=== PATIENT | male | born 1945 | race Caucasian/White ===

== ENCOUNTER 2016-08-10 07:32 | Inpatient (IN) | payer OTHER ==
[~2016-08-10] VITALS: Ht 165.1 cm; Wt 90.6 kg
[~2016-08-10 07:32] MED LIST: ACETAMINOPHN-T1 EACH PO; ASPIR-TRIN325 M1 PO; ATORVASTATIN CA40 MG PO; BENADRYL50 MG PO; CALCIUM + D3 E1 EACH PO; CARDIZEM CD120 MG PO; CHILDREN'S ASPI81 M1 PO; CIPRO HC OTIC S10 ML BOTH EARS; COREG12.5 M1 PO; COUMADIN2 MG PO; COUMADIN3 MG PO; CRESTOR20 MG; CRESTOR20 MG PO; CRESTOR40 MG PO; DIGOXIN125 MCG PO; DILTIAZEM CAP 120; DIOVAN160 MG PO; FENOFIBRATE160 M1 PO; FLOMAX0.4 MG PO; KAOPECTATE 88 M88 M1 PO; LEXAPRO10 MG PO; LOMOTIL TABLET1 EACH PO; LOPRESSOR25 MG PO; MEGESTROL ACETA40 MG PO; OMEPRAZOLE40 M1 PO; PREDNISONE10 MG PO; PRILOSEC40 MG PO; PROTONIX40 MG PO; PYRIDIUM100 MG PO; TAMSULOSIN HCL0.4 MG PO; ULTRACET1 TABLET PO; WARFARIN SODIUM2 MG; WARFARIN SODIUM2 MG PO; ZYRTEC10 M2 PO
[2016-08-10 07:59] VITALS: BP 166/82
[2016-08-10 08:15] LABS: HEMATOCRIT 40.7 % (38.0-50.0); MCH 30.4 PG (29.0-34.0); MCHC 33.7 G/DL (30.0-36.0); MCV 90.2 FL (86-99); MEAN PLAT.VOLUME 11.9 uM^3 (9.0-12.4); PLATELET COUNT 171 K/uL (156-360); RBC DIS.WIDTH-CV 14.3 % (11.8-14.6); RBC DIS.WIDTH-SD 47.3 % (39-53); RED BLOOD COUNT 4.51 M/uL (4.00-5.50); WHITE BLOOD COUNT 5.8 K/uL (4.1-10.2)
[2016-08-10 08:24] LABS: PROTHROMBIN TIME 14.5 (9.2-11.2)
[2016-08-10 08:40] LABS: ANION GAP 10 MEQ/L (2-14); CHLORIDE 104 MEQ/L (99-109); INTER. NORMALIZED RATIO 1.4; POTASSIUM 4.5 MEQ/L (3.7-5.4); SAMPLE HEMOLYSIS CHECK 0; SAMPLE ICTERIC CHECK 0; SAMPLE LIPEMIA CHECK 0; SODIUM 138 MEQ/L (136-147)
[2016-08-10 08:45] LABS: GFR ESTIMATE (CALCULATED) > 59 mL/min/; GLUCOSE 173 mg/dL (70-99); UREA NITROGEN (BUN) 19 mg/dL (9-23)
[2016-08-10 08:48] LABS: DIGOXIN 1.3 ng/mL (0.8-2.0)
[2016-08-10 12:33] LABS: HEMATOCRIT 39.9 % (38.0-50.0); MCH 30.8 PG (29.0-34.0); MCHC 34.1 G/DL (30.0-36.0); MCV 90.3 FL (86-99); MEAN PLAT.VOLUME 12.1 uM^3 (9.0-12.4); PLATELET COUNT 125 K/uL (156-360); RBC DIS.WIDTH-CV 14.2 % (11.8-14.6); RED BLOOD COUNT 4.42 M/uL (4.00-5.50); WHITE BLOOD COUNT 9.8 K/uL (4.1-10.2)
[2016-08-10 13:02] LABS: ANION GAP 12 MEQ/L (2-14); CHLORIDE 104 MEQ/L (99-109); CREATINE KINASE 135 IU/L (1-294); GFR ESTIMATE (CALCULATED) > 59 mL/min/; GLUCOSE 169 mg/dL (70-99); POTASSIUM 4.7 MEQ/L (3.7-5.4); SAMPLE HEMOLYSIS CHECK 0; SAMPLE ICTERIC CHECK 0; SAMPLE LIPEMIA CHECK 0; SODIUM 137 MEQ/L (136-147); TOTAL CK 135 IU/L (1-294); UREA NITROGEN (BUN) 19 mg/dL (9-23)
[2016-08-10 13:35] LABS: CK-MB 1.9 ng/mL (0.0-4.9)
[2016-08-10] MEDS ORDERED: HYDROCODON-ACE1 EAC7 PO (14:40)
[2016-08-10 16:35] VITALS: BP 139/90
[2016-08-10 19:20] VITALS: BP 144/73
[2016-08-10 23:20] VITALS: BP 166/86
[2016-08-11 03:20] VITALS: BP 143/85
[2016-08-11 06:41] LABS: HEMATOCRIT 35.5 % (38.0-50.0); MCH 30.7 PG (29.0-34.0); MCHC 34.1 G/DL (30.0-36.0); MCV 90.1 FL (86-99); PLATELET COUNT 135 K/uL (156-360); RBC DIS.WIDTH-CV 14.5 % (11.8-14.6); RBC DIS.WIDTH-SD 47.6 % (39-53); RED BLOOD COUNT 3.94 M/uL (4.00-5.50)
[2016-08-11 06:50] LABS: WHITE BLOOD COUNT 13.6 K/uL (4.1-10.2)
[2016-08-11 07:02] LABS: ANION GAP 11 MEQ/L (2-14); CHLORIDE 104 MEQ/L (99-109); CREATINE KINASE 159 IU/L (1-294); GFR ESTIMATE (CALCULATED) 58 mL/min/; GLUCOSE 210 mg/dL (70-99); POTASSIUM 4.2 MEQ/L (3.7-5.4); SAMPLE HEMOLYSIS CHECK 0; SAMPLE ICTERIC CHECK 0; SAMPLE LIPEMIA CHECK 0; SODIUM 139 MEQ/L (136-147); TOTAL CK 159 IU/L (1-294); UREA NITROGEN (BUN) 20 mg/dL (9-23)
[2016-08-11 07:37] LABS: CK-MB 3.7 ng/mL (0.0-4.9)
[2016-08-11 07:40] VITALS: BP 146/78
[2016-08-11 11:12] VITALS: BP 151/86
[2016-08-11 15:58] VITALS: BP 153/81
== END 2016-08-11 17:10 | disposition home or self-care (01) | DRG 269 ==
LOC: 2SOUTH 07:32 → 4EAST 16:26
PROVIDERS: Surgery
PROC: 04V03D6 (ICD-10-PCS; principal; 2016-08-10)
PROC: 5A09357 Assistance with Respiratory Ventilation, Less than 24 Consecutive Hours, Continuous Positive Airway Pressure (ICD-10-PCS; 2016-08-10)
DX: I71.4 Abdominal aortic aneurysm, without rupture (principal); I25.810 Atherosclerosis of coronary artery bypass graft(s) without angina pectoris; I11.0 Hypertensive heart disease with heart failure; I50.9 Heart failure, unspecified; I48.2 Chronic atrial fibrillation; I25.5 Ischemic cardiomyopathy; G47.33 Obstructive sleep apnea (adult) (pediatric); E78.2 Mixed hyperlipidemia; M19.90 Unspecified osteoarthritis, unspecified site; K21.9 Gastro-esophageal reflux disease without esophagitis; E66.9 Obesity, unspecified; I25.2 Old myocardial infarction; Z86.74 Personal history of sudden cardiac arrest; Z95.1 Presence of aortocoronary bypass graft; Z95.5 Presence of coronary angioplasty implant and graft; Z95.810 Presence of automatic (implantable) cardiac defibrillator; Z79.01 Long term (current) use of anticoagulants; Z85.46 Personal history of malignant neoplasm of prostate; Z88.0 Allergy status to penicillin; Z88.2 Allergy status to sulfonamides; Z91.041 Radiographic dye allergy status; Z87.891 Personal history of nicotine dependence; Z68.33 Body mass index [BMI] 33.0-33.9, adult
CPT/HCPCS: 80048; 80048 91; 80162; 82550; 82553; 85027; 85610; 86850; 86900; 86901; 93005; 94660; C1725; C1769; C1874; C1887; C1892; C1894; J0131; J1170; J1200; J1644; J1650; J1720; J2250; J2405; J2710; J2720; J3010; J7120

== ENCOUNTER 2016-09-17 10:38 | Emergency (ER) | payer OTHER ==
[~2016-09-17] VITALS: Ht 162.6 cm; Wt 87.3 kg
[~2016-09-17 10:38] MED LIST changes: +HYDROCODON-ACE1 EAC7 PO
[2016-09-17 11:35] LABS: EOSINOPHIL (%) 3.7 % (0-5); EOSINOPHIL COUNT 0.2 K/uL (0-0.3); HEMATOCRIT 41.2 % (38.0-50.0); IMMATURE GRANULOCYTE (%) 0.5 % (0.0-0.7); INSTRUMENT ABS NEUTROPHIL CT 4.2 K/uL; LYMPHOCYTE COUNT 1.2 K/uL (1.0-2.8); MCH 29.1 PG (29.0-34.0); MCHC 32.5 G/DL (30.0-36.0); MCV 89.6 FL (86-99); MEAN PLAT.VOLUME 11.2 uM^3 (9.0-12.4); MONOCYTE (%) 10.1 % (3-12); MONOCYTE COUNT 0.6 K/uL (0-0.8); NEUTROPHIL COUNT 4.2 K/uL (1.8-6.4); PLATELET COUNT 168 K/uL (156-360); RBC DIS.WIDTH-CV 14.9 % (11.8-14.6); RBC DIS.WIDTH-SD 49.1 % (39-53); WHITE BLOOD COUNT 6.2 K/uL (4.1-10.2)
[2016-09-17 11:43] LABS: CHLORIDE 112 mEq/L (99-109); POTASSIUM 4.1 mEq/L (3.7-5.4); SODIUM 141 mEq/L (136-147)
[2016-09-17 11:44] LABS: GLUCOSE 96 mg/dL (70-99)
[2016-09-17 11:46] LABS: ANION GAP 11 MEQ/L (2-14)
[2016-09-17 11:48] LABS: GFR ESTIMATE (CALCULATED) 53 mL/min/
[2016-09-17 11:49] LABS: UREA NITROGEN (BUN) 23 mg/dL (9-23)
[2016-09-17 11:54] LABS: INTER. NORMALIZED RATIO 4.4
[2016-09-17] MEDS ORDERED: MEGESTROL ACETA20 MG PO (12:55)
[2016-09-17] MEDS ORDERED: ZOFRAN ODT4 MG PO (13:45)
[2016-09-17 13:59] VITALS: BP 148/81
== END 2016-09-17 14:29 | disposition home or self-care (01) ==
LOC: EME 10:38
PROVIDERS: Emergency Medicine
DX: K52.9 Noninfective gastroenteritis and colitis, unspecified (principal); Z87.891 Personal history of nicotine dependence; Z88.8 Allergy status to other drugs, medicaments and biological substances; Z88.2 Allergy status to sulfonamides; Z88.0 Allergy status to penicillin; Z91.041 Radiographic dye allergy status; I10 Essential (primary) hypertension; I25.2 Old myocardial infarction; K21.9 Gastro-esophageal reflux disease without esophagitis; Z86.74 Personal history of sudden cardiac arrest; Z87.442 Personal history of urinary calculi; Z95.1 Presence of aortocoronary bypass graft; Z85.46 Personal history of malignant neoplasm of prostate
CPT/HCPCS: 80048; 85025; 85610; 87493; 99281; 99285; J2405; J7030

== ENCOUNTER → 2017-08-26 | Outpatient (CLI) | payer MEDICARE, OTHER ==
[~2017-08-26] MED LIST changes: +MEGESTROL ACETA20 MG PO; +ZOFRAN ODT4 MG PO
== END | disposition home or self-care (01) ==
LOC: CDC 08:27
DX: Z01.810 Encounter for preprocedural cardiovascular examination (principal); H25.11 Age-related nuclear cataract, right eye; I48.91 Unspecified atrial fibrillation; R94.31 Abnormal electrocardiogram [ECG] [EKG]
CPT/HCPCS: 93000